=== PATIENT | male | born 2000 | race Caucasian/White ===

== ENCOUNTER → 2019-05-02 | Day surgery (SDC) | payer BC ==
[2019-04-28 15:13] VITALS: BMI 25.1
[~2019-05-02] MED LIST: LACTATED RINGERS 1,000 ML IV SCH; LIDOCAINE 1% 20 ML VIAL (10MG/ML) FOR IV START INTRADERMA PRN; LIDOCAINE 1% INJ 10MG/ML (20 ML MDV) ONE; PROPOFOL 10 MG/ML 20 ML VIAL IV ONE
[2019-05-02 11:48] VITALS: TEMP 98.2
--- NOTE | 2019-05-02 13:25 | P.PCN ---
Date of Procedure: 05/02/19 Description of Procedure: Brief history: Patient is a pleasant scheduled for an elective upper endoscopy as well as colonoscopy as a part of evaluation of complaints of abdominal pain occurring both in the epigastric region of his abdomen as well as the lower quadrants of his abdomen. Previous evaluation with laboratory studies have all been negative. Patient was seen in the clinic and started on antispasmodic and PPI therapy. Ultrasound performed in evaluation was essentially negative. Procedure performed: Esophagogastroduodenoscopy with biopsy Colonoscopy with biopsy Estimated blood loss: Minimal. Preoperative diagnosis: Epigastric abdominal pain, GERD, lower quadrant abdominal pain Anesthesia: MAC Procedure: After informed consent was obtained from the patient was brought into the endoscopy unit and IV sedation was administered by anesthesia under continuous monitoring. Initially upper endoscopy was done. The Olympus GF 190 video endoscope was inserted into the mouth and esophagus intubated without any difficulty and was gradually advanced into the stomach and duodenum and carefully examined. The bulb and second part of the duodenum appeared normal, with biopsies taken to rule out celiac sprue. The scope was then withdrawn into the stomach adequately insufflated with air and upon careful examination the antrum and body, cardia and fundus appeared normal, except for some mild scattered erythema in the antrum and body suggestive of mild gastritis with biopsies taken. The scope was then withdrawn into the esophagus. The GE junction was located at 42 cm to the incisors and biopsied. It appeared regular with no erythema erosions or ulcerations. Rest of the esophagus appeared normal. Patient tolerated the procedure well. At this time the patient continued to remain sedation. Initial digital rectal examination was normal. Olympus CF 190 video colonoscope was then inserted into the rectum and gradually advanced to the cecum without any difficulty. Careful examination was performed as the scope was gradually being withdrawn. The prep was excellent. The terminal ileum was intubated and appeared normal with biopsies taken. The cecum, ascending colon, transverse colon, descending colon, sigmoid colon and rectum appeared normal, with biopsies of the right and left colon the setting of altered bowel function. Retroflexion was performed in the rectum and no lesions were noted. Patient tolerated the procedure well. Impression: 1. Mild gastritis antrum and body, biopsied. Biopsies of the duodenum and GE junction. 2. Normal-appearing colon from rectum to cecum with normal-appearing terminal ileum and biopsies taken of the right colon, left colon and terminal ileum in the setting of unexplained abdominal pain and altered bowel function. Recommendations: Findings of this examination were discussed with the patient as well as his mother. Okay to resume diet. Okay to resume medications. Follow-up in gastroenterology clinic as previously scheduled.
[2019-05-02 13:27] VITALS: RESP 17
[2019-05-02 13:48] VITALS: BP 113/71; PULSE 59
[2019-05-02 13:57] LABS: Basophils % (A) 0 %; Eosinophils # (A) 0.1 k/uL (0-0.7); Eosinophils % (A) 1 %; HGB 15.4 gm/dL (13.0-17.5); Lymphocytes # (A) 1.1 k/uL (1.0-4.8); Lymphocytes % (A) 15 %; MCH 28.2 pg (25.0-35.0); MCHC 34.3 g/dL (31.0-37.0); MCV 82.2 fL (80.0-100.0); Monocytes # (A) 0.4 k/uL (0-1.0); Monocytes % (A) 5 %; Neutrophils # (A) 5.8 k/uL (1.3-7.7); Neutrophils % (A) 78 %; Platelet Count 224 k/uL (150-450); RBC 5.48 m/uL (4.30-5.90); WBC 7.4 k/uL (4.0-11.0)
[2019-05-02 14:33] LABS: ALT 52 U/L (4-49); AST 49 U/L (17-59); African American GFR (CKD) >90 (>60 ml/min/1.73 sqM); Albumin 4.5 g/dL (3.5-5.0); Alkaline Phosphatase 69 U/L (38-126); Amylase 52 U/L (30-110); Anion Gap 7 mmol/L; Blood Urea Nitrogen 13 mg/dL (9-20); C Reactive Protein <5.0 mg/L (<10.0); Calcium 9.6 mg/dL (8.4-10.2); Carbon Dioxide 28 mmol/L (22-30); Chloride 102 mmol/L (98-107); Glucose 76 mg/dL (74-99); Non-African American GFR(CKD) >90 (>60 ml/min/1.73 sqM); Potassium 4.4 mmol/L (3.5-5.1); Sodium 137 mmol/L (137-145); Total Bilirubin 1.3 mg/dL (0.2-1.3); Total Protein 6.7 g/dL (6.3-8.2)
[2019-05-02 15:39] LABS: Erythrocyte Sedimentation Rate 2 mm/hr (0-15)
== END ==
LOC: ORWHC2ENDO 10:44
PROVIDERS: ATTEND Internal Medicine
DX: K29.50 Unspecified chronic gastritis without bleeding (principal); K21.0 Gastro-esophageal reflux disease with esophagitis; R10.30 Lower abdominal pain, unspecified; Z79.899 Other long term (current) drug therapy; Z90.89 Acquired absence of other organs
CPT/HCPCS: 88305; 80053; 85652; 82150; 83690; 85025; 86140; 45380; 43239; J2001; J2704

== ENCOUNTER 2022-10-18 21:24 | Emergency (ER) | payer BC ==
[2022-10-18 21:30] VITALS: TEMP 97.9
[2022-10-18] MEDS ORDERED: KETOROLAC 15 MG/ML 1 ML VIAL IM STA (22:05)
--- NOTE | 2022-10-18 22:06 | ED ---
Upper Extremity HPI - General Chief Complaint: Extremity Injury, Upper Stated Complaint: Rt arm injury Time Seen by Provider: 10/18/22 21:35 Source: patient Mode of arrival: ambulatory Limitations: no limitations - History of Present Illness Initial Comments: Patient is a 21-year-old male presenting to the emergency room complains of pain, swelling and numbness to the right elbow which began after hearing a crackling like sensation while wrestling prior to his arrival to the emergency room tonight. He states that he believes that the elbow may have initially been dislocated and popped back into place when he stood up. He is complaining of difficulty with range of motion to the right elbow but denies any range of motion impairment to the right wrist or hand. He denies any other complaints or concerns at this time. Overall he is healthy with no significant past medical history. - Related Data Home Medications Medication Instructions Recorded Confirmed Dicyclomine [Bentyl] 20 mg PO QID PRN 04/28/19 04/28/19 Omeprazole 20 mg PO DAILY 04/28/19 04/28/19 Allergies Allergy/AdvReac Type Severity Reaction Status Date / Time No Known Allergies Allergy Verified 10/18/22 21:30 Review of Systems ROS Statement: Those systems with pertinent positive or pertinent negative responses have been documented in the HPI. ROS Other: All systems not noted in ROS Statement are negative. Past Medical History Past Medical History: No Reported History History of Any Multi-Drug Resistant Organisms: None Reported Past Surgical History: Adenoidectomy, Orthopedic Surgery, Tonsillectomy Past Anesthesia/Blood Transfusion Reactions: No Reported Reaction Past Psychological History: No Psychological Hx Reported Smoking Status: Current every day smoker Past Alcohol Use History: Occasional Past Drug Use History: Marijuana - Past Family History Mother Family Medical History: No Reported History General Exam Limitations: no limitations General appearance: alert, in no apparent distress Head exam: Present: atraumatic, normocephalic, normal inspection Eye exam: Present: normal appearance, PERRL, EOMI. Absent: scleral icterus, conjunctival injection, periorbital swelling ENT exam: Present: normal exam, mucous membranes moist Neck exam: Present: normal inspection Respiratory exam: Absent: respiratory distress, accessory muscle use Cardiovascular Exam: Present: regular rate GI/Abdominal exam: Absent: distended Right Elbow exam: Present: tenderness, swelling, pain w/ pronation/supination. Absent: full ROM (Limited by swelling), abrasion, laceration, ecchymosis, deformity, crepitus, dislocation, erythema Vascular: Absent: vascular compromise Back exam: Present: normal inspection Neurological exam: Present: alert, oriented X3, CN II-XII intact Psychiatric exam: Present: normal affect, normal mood Skin exam: Present: warm, dry, intact, normal color. Absent: rash Course Vital Signs 10/18/22 21:29 Temperature 97.9 F Pulse Rate 80 Respiratory 18 Rate Blood Pressure 134/87 O2 Sat by Pulse 100 Oximetry Procedures - Orthopedic Splinting/Casting Injury #1 Side: right Upper Extremity Injury Location: elbow Upper Extremity Immobilizer: sling/shoulder immobilizer, Yannick wrap Medical Decision Making - Medical Decision Making Was pt. sent in by a medical professional or institution (, PA, SALES BROKER, urgent care, hospital, or detention...) When possible be specific @ -No Did you speak to anyone other than the patient for history (EMS, parent, family, police, friend...)? What history was obtained from this source @ -No Did you review nursing and triage notes (agree or disagree)? Why? @ -I reviewed and agree with nursing and triage notes Were old charts reviewed (outside hosp., previous admission, EMS record, old EKG, old radiological studies, urgent care reports/EKG's, detention records)? Report findings @ -No old charts were reviewed Differential Diagnosis (chest pain, altered mental status, abdominal pain women, abdominal pain men, vaginal bleeding, weakness, fever, dyspnea, syncope, headache, dizziness, GI bleed, back pain, seizure, CVA, palpatations, mental health, musculoskeletal)? @ -Differential Musculoskeletal Muscular strain, contusion, ligament sprain, fracture, arthritis, septic arthritis, bursitis, cellulitis, muscle spasm, nerve compression, DVT, arterial occlusion, herpes zoster, electrolyte abnormality, tumor.... This is not meant to be in all inclusive list EKG interpreted by me (3pts min.). @ -None done X-rays interpreted by me (1pt min.). @ -X-ray right elbow: Soft tissue swelling noted. No fracture or dislocation. CT interpreted by me (1pt min.). @ -None done U/S interpreted by me (1pt. min.). @ -None done What testing was considered but not performed or refused? (CT, X-rays, U/S, labs)? Why? @ -None What meds were considered but not given or refused? Why? @ -None Did you discuss the management of the patient with other professionals (professionals i.e. , PA, SALES BROKER, lab, RT, psych nurse, psychosocial rehabilitation counselor, band edger, teacher, equal employment opportunity officer, field case manager)? Give summary @ -No Was smoking cessation discussed for >3mins.? @ -No Was critical care preformed (if so, how long)? @ -No Were there social determinants of health that impacted care today? How? (Homelessness, low income, unemployed, alcoholism, drug addiction, transportation, low edu. Level, literacy, decrease access to med. care, [facility], r ehab)? @ -No Was there de-escalation of care discussed even if they declined (Discuss DNR or withdrawal of care, Hospice)? DNR status @ -No What co-morbidities impacted this encounter? (DM, HTN, Smoking, COPD, CAD, Cancer, CVA, ARF, Chemo, Hep., AIDS, mental health diagnosis, sleep apnea, morbid obesity)? @ -None Was patient admitted / discharged? Hospital course, mention meds given and route, prescriptions, significant lab abnormalities, going to OR and other pertinent info. @ -21-year-old male presented to the emergency room with complaints of pain, swelling, tingling and decreased range of motion to right elbow after hearing a crackling like sensation and concern for dislocation after wrestling earlier this evening. Will give Toradol for pain and obtain x-ray of the right elbow. Pain improved with Toradol. X-ray shows no acute fracture or dislocation. Soft tissue swelling noted. Yannick wrap and sling applied neurovascularly intact pre-and post application. Advised rest, elevation, ice and continued compression. Encouraged follow-up with orthopedist. Advised no return to work until cleared by orthopedist or his primary care provider. Advised use of [id number] Tylenol or ibuprofen for pain as needed. Questions and concerns answered. Return parameters to the emergency room discussed. Will discharge home in stable condition with Yannick wrap and sling intact to right elbow strain advising [id number] Tylenol or Motrin for pain and follow-up with orthopedist. Undiagnosed new problem with uncertain prognosis? @ -No Drug Therapy requiring intensive monitoring for toxicity (Heparin, Nitro, Insulin, Cardizem)? @ -No Were any procedures done? @ -Yannick wrap and sling applied to right elbow Diagnosis/symptom? @ -Right elbow strain Acute, or Chronic, or Acute on Chronic? @ -Acute Uncomplicated (without systemic symptoms) or Complicated (systemic symptoms)? @ -Uncomplicated Side effects of treatment? @ -No Exacerbation, Progression, or Severe Exacerbation? @ -No Poses a threat to life or bodily function? How? (Chest pain, [place], [place], pneumonia, PE, COPD, DKA, ARF, appy, cholecystitis, CVA, Diverticulitis, Homicidal, Suicidal, threat to staff... and all critical care pts) @ -No Case discussed with Dr. Travis - Radiology Data Radiology results: report reviewed, image reviewed Disposition Clinical Impression: Sprain of elbow, right Disposition: HOME SELF-CARE Condition: Stable Instructions (If sedation given, give patient instructions): Elbow Sprain (ED) Additional Instructions: Please continue conservative management with R. I. C. E. Rest joint when possible, apply ice for 20 minute increments every 2-3 hours, keep compression with Yannick wrap intact when possible. Elevate joint when possible. Utilize [id number] analgesics of ibuprofen or Tylenol as needed for pain. Please follow-up with your primary care provider. Please return to the Emergency Depa rtment if symptoms worsen or any other concerns. Is patient prescribed a controlled substance at d/c from ED?: No Referrals: Yogi Diaz MD [Primary Care Provider] - 1-2 days Parminder Ludwig MD [STAFF PHYSICIAN] - 1-2 days Time of Disposition: 22:54
[2022-10-18 23:07] VITALS: BP 151/84; PULSE 88; RESP 16
--- NOTE | 2022-10-19 00:21 | XR ---
EXAM: XR Right Elbow Complete, 3 or More Views CLINICAL HISTORY: ITS.REASON XR Reason: pain swelling TECHNIQUE: Frontal, lateral and oblique views of the right elbow. COMPARISON: No relevant prior studies available. FINDINGS: Bones/joints: Unremarkable. No acute fracture. No dislocation. Soft tissues: Subcutaneous edema along the ulnar-aspect of the arm above the elbow. IMPRESSION: Subcutaneous edema along the ulnar-aspect of the arm above the elbow.
== END 2022-10-18 23:07 | disposition home or self-care (01) ==
LOC: EC 21:24
DX: S53.401A Unspecified sprain of right elbow, initial encounter (principal); F17.200 Nicotine dependence, unspecified, uncomplicated; F12.90 Cannabis use, unspecified, uncomplicated; W19.XXXA Unspecified fall, initial encounter; Y93.72 Activity, wrestling
CPT/HCPCS: 73080; 99283; 96372; J1885